=== PATIENT | female | born 1980 | race Caucasian/White ===

== ENCOUNTER 2018-04-07 19:18 | Inpatient (IN) ==
[2018-04-07 20:59] LABS: Apearance,Urine CLOUDY (Clear); Bacteria,Urine Occasional /HPF (Few); Bilirubin,Urine Negative (Negative); Blood, Urine Negative (Negative); Glucose,Urine (UA) Negative (Negative); Ketones,Urine 80 mg/dL (Negative); Mucus,Urine Moderate /LPF (Occasional); Nitrite,Urine Negative (Negative); Protein,Urine 30 MG/DL; RBC,Urine 1 /HPF (0-4); Squamous Epithelial Cell,Urine Few /HPF (0-10); Urine Color Yellow (Yellow); Urine Specific Gravity 1.025 (1.001-1.035); WBC,Urine 5 /HPF (0-6)
[2018-04-07] MEDS ORDERED: SODIUM CHLORIDE 0.9% 1,000 ML IV STA (22:06)
[2018-04-07] MEDS ORDERED: MORPHINE 4 MG/1 ML VIAL IV STA (22:06)
[2018-04-07] MEDS: ONDANSETRON 4 MG/2 ML VIAL IV PRN (22:27)
[2018-04-07 22:36] LABS: Basophils % 0.3 % (0.0-0.8); Eosinophils % 0.1 % (0.00-10.9); Hemoglobin 15.6 GM/DL (12.0-16.0); Immature Granulocytes % 0.3 %; Immature Granulocytes Absolute 0.03 #; Lymphocytes # 0.4 10*3/uL (1.4-4.0); Lymphocytes % 4.1 % (21.3-54.2); Mean Corpuscular HGB Conc 33.2 GM/DL (32-36); Mean Corpuscular Hemoglobin 31 PG (27-34); Mean Corpuscular Volume 92.2 FL (87-102); Mean Platelet Volume 10.1 FL (9.6-12.0); Monocytes # 0.3 10*3/uL (0.11-0.8); Monocytes % 2.8 % (1.7-12.7); Neutrophils # 9.7 10*3/uL (1.4-7.4); Neutrophils % 92.4 % (38.7-73.9); Platelet Count 267 T/CUMM (130-400); Red Cell Distribution Width 13.2 % (9.3-17.3); White Blood Count 10.5 T/CUMM (4-12)
[2018-04-07 22:56] LABS: Albumin 4.3 G/DL (3.4-5.0); Bilirubin,Total 0.5 MG/DL (0.2-1.0); Calcium 9.3 MG/DL (8.5-10.1); Osmolality,Calculated 278.5 MOS/KG (273-304); Potassium 4.1 MMOL/L (3.5-5.1); Total Protein 7.7 G/DL (6.4-8.3)
[2018-04-07] MEDS ORDERED: ACETAMINOPHEN 325 MG TABLET PO PRN (23:02)
[2018-04-07] MEDS ORDERED: ONDANSETRON 4 MG/2 ML VIAL IV PRN (23:02)
[2018-04-08 00:40] LABS: Band Neutrophils 1 % (0-10); Lymphocytes 3 % (20-55); Platelet Estimate Adequate; Segmented Neutrophils 95 % (50-85); Total Cells Counted 100
[2018-04-08] MEDS: DEXTROSE 5% LACTATED RINGERS 1,000 ML IV SCH ×3 (01:13→20:35)
[2018-04-08] MEDS: ONDANSETRON 4 MG/2 ML VIAL IV PRN ×2 (03:23→09:48)
[2018-04-08] MEDS: PANTOPRAZOLE 40 MG TABLET PO SCH (09:45)
[2018-04-08] MEDS ORDERED: cefOXitin 2,000 MG in SYRINGE 1 EACH IV ONE (12:55)
[2018-04-08] MEDS ORDERED: BUPIVACAINE 0.5% /EPI 10 ML VIAL ONE (13:05)
[2018-04-08] MEDS ORDERED: LIDOCAINE 1%/EPI INJ 20 ML VIAL ONE (13:06)
[2018-04-08] MEDS ORDERED: TISSUE ADHESIVE 1 EACH APPLICATOR TOP ONE (13:06)
[2018-04-08] MEDS ORDERED: SCOPOLAMINE 1.5 MG PATCH TRANSDERM ONE (17:08)
[2018-04-08] MEDS ORDERED: SUGAMMADEX 200 MG/2 ML VIAL IV ONE (18:33)
[2018-04-08] MEDS ORDERED: HYDROmorphone 2 MG/1 ML VIAL ONE (19:00)
[2018-04-08] MEDS ORDERED: MIDAZOLAM 2 MG/2 ML VIAL ONE (19:00)
[2018-04-08] MEDS ORDERED: PROPOFOL 200 MG/20 ML VIAL IV ONE (19:00)
[2018-04-08] MEDS ORDERED: SEVOFLURANE 1 UNIT/15 MINUTE INH ONE (19:00)
[2018-04-08] MEDS ORDERED: fentaNYL 100 MCG/2 ML VIAL ONE (19:00)
[2018-04-08] MEDS ORDERED: ROCURONIUM 100 MG/10 ML VIAL IV ONE (19:01)
[2018-04-08] MEDS ORDERED: ONDANSETRON 4 MG/2 ML VIAL ONE (19:01)
[2018-04-08] MEDS ORDERED: SUCCINYLCHOLINE 200 MG/10 ML VIAL ONE (19:01)
[2018-04-08] MEDS ORDERED: DEXAMETHASONE 10 MG/1 ML VIAL ONE (19:01)
[2018-04-08] MEDS: HYDROmorphone 2 MG/1 ML VIAL IV PRN (20:33)
[2018-04-09] MEDS: HYDROmorphone 2 MG/1 ML VIAL IV PRN ×2 (00:05→04:43)
[2018-04-09] MEDS: DEXTROSE 5% LACTATED RINGERS 1,000 ML IV SCH ×2 (01:47→09:05)
[2018-04-09 06:56] VITALS: BP 90/50
[2018-04-09 07:31] LABS: Hematocrit 37.3 VOL% (35.7-47.0); Hemoglobin 12.5 GM/DL (12.0-16.0); Immature Granulocytes % 0.3 %; Immature Granulocytes Absolute 0.02 #; Lymphocytes # 0.8 10*3/uL (1.4-4.0); Lymphocytes % 11.4 % (21.3-54.2); Mean Corpuscular HGB Conc 33.5 GM/DL (32-36); Mean Corpuscular Hemoglobin 31 PG (27-34); Mean Corpuscular Volume 92.1 FL (87-102); Mean Platelet Volume 10.6 FL (9.6-12.0); Monocytes # 0.3 10*3/uL (0.11-0.8); Monocytes % 4.1 % (1.7-12.7); Neutrophils # 6.1 10*3/uL (1.4-7.4); Neutrophils % 84.2 % (38.7-73.9); Platelet Count 210 T/CUMM (130-400); Red Blood Count 4.05 MC/CUMM (3.8-5.5); Red Cell Distribution Width 13.5 % (9.3-17.3); White Blood Count 7.3 T/CUMM (4-12)
[2018-04-09 07:55] LABS: Band Neutrophils 9 % (0-10); Lymphocytes 11 % (20-55); Segmented Neutrophils 77 % (50-85); Total Cells Counted 100
[2018-04-09 07:56] LABS: Hypochromasia Slight; Microcytosis Slight
[2018-04-09 07:57] LABS: Ovalocytes Slight
[2018-04-09 08:01] LABS: Alanine Aminotransferase 45 U/L (13-56); Alkaline Phosphatase 57 U/L (45-117); Aspartate Amino Transferase 39 U/L (0-37); Bilirubin,Total < 0.39 MG/DL (0.2-1.0); Total Protein 5.7 G/DL (6.4-8.3)
[2018-04-09 08:02] LABS: Blood Urea Nitrogen 8 MG/DL (7-18); Glucose 136 MG/DL (74-106); Osmolality,Calculated 278.4 MOS/KG (273-304); Potassium 4.2 MMOL/L (3.5-5.1); Sodium 140 MMOL/L (136-145)
[2018-04-09] MEDS: PANTOPRAZOLE 40 MG TABLET PO SCH (09:04)
== END 2018-04-09 10:06 | disposition home or self-care (01) | DRG 419 ==
LOC: N.ED 19:18 → N.EDINP 23:02 → N.3E 04-08 00:48
PROVIDERS: ADMIT Surgery; ATTEND Surgery
PROC: LAPCHOL (2018-04-08 17:45)